=== PATIENT | male | born 1945 | race Caucasian/White ===

== ENCOUNTER 2016-05-17 10:24 | Emergency (ER) | payer OTHER, MEDICAID ==
[2016-05-17 10:29] VITALS: RESP 16; O2SAT 97
--- NOTE | 2016-05-17 10:32 | EDPHY ---
H & P Stated Complaint: abd pain Time Seen by Provider: 05/17/16 10:32 - Personal History Current Tetanus/Diphtheria Vaccine: Unsure Current Tetanus Diphtheria and Acellular Pertussis (TDAP): Unsure - Medical/Surgical History Hx Asthma: No Hx Chronic Respiratory Disease: No Hx Diabetes: No Hx Cardiac Disease: No Hx Renal Disease: No Hx Cirrhosis: No Hx Alcoholism: No Hx HIV/AIDS: No Hx Splenectomy or Spleen Trauma: No Other PMH: diverticulitis gout - Social History Smoking Status: Former smoker Constitutional: Initial Vital Signs Temperature (C) 36.3 C 05/17/16 10:26 Heart Rate 73 05/17/16 10:26 Respiratory Rate 16 05/17/16 10:26 Blood Pressure 157/92 H 05/17/16 10:26 O2 Sat (%) 97 05/17/16 10:26 O2 Delivery Mode Room Air Allergies/Adverse Reactions: No Known Allergies Allergy (Unverified 05/17/16 10:29) Medical Decision Making ED Course/Re-evaluation: CHIEF COMPLAINT: Abdominal pain HISTORY OF PRESENT ILLNESS: 70-year-old gentleman who was sent in by his primary care doctor's nurse because he has left lower quadrant abdominal pain. Has a remote history of Clostridium difficile about 5 years ago. He denies any diarrhea. He has an appoint with his primary care doctor later but his nurse sent the patient in to obtained tests the patient has no idea what tests. Patient denies fevers or chills. Patient denies diarrhea nausea or vomiting. Patient denies bloody stools. Patient is complaining of several days of left lower quadrant pain. REVIEW OF SYSTEMS: A 10 point review of systems was performed and is negative with the exception of the elements mentioned in the history of present illness. PHYSICAL EXAM: HR, BP, O2 Sat, RR. Temp noted General Appearance: Alert, well hydrated, appropriate, and non-toxic appearing. Head: Atraumatic without scalp tenderness or obvious injury Eyes: Pupils equal, round, reactive to light and accommodation, EOMI, no trauma , no injection. Ears: Clear bilaterally, no perforation, normal landmarks Nose: Atraumatic, no rhinorrhea, clear. Throat: There is no erythema or exudates, no lesions, normal tonsils, mucus membranes moist. Neck: Supple, 2+ carotid upstroke, nontender, no lymphadenopathy. Respiratory: No retractions, no distress, no wheezes, and no accessory muscle use. Lungs are clear to auscultation bilaterally. Cardiovascular: Regular rate and rhythm, no murmurs, rubs, or gallops. Bilateral carotid, radial, dorsalis pedis, and posterior tibial pulses intact. Good capillary refill all extremities. Gastrointestinal: Abdomen is soft, mild tenderness left lower quadrant, non- distended, no masses, no rebound, no guarding, no peritoneal signs. Musculoskeletal: Normal active ROM of all extremities, atraumatic. Neurological: Alert, appropriate, and interactive. The patient has normal DTRs and non-focal cranial nerves, motor, sensory, and cerebellar exam. Skin: No rashes, good turgor, no nodules on palpation. Past medical history: Lyme disease and Clostridium difficile Past surgical history: Noncontributory Family history: Noncontributory Social history: Single, retired, does not abuse tobacco drugs or alcohol DIAGNOSTICS/PROCEDURES/CRITICAL CARE TIME: Study: CT of the abdomen and pelvis with IV contrast Indication: left lower quadrant abdominal pain Results: CT scan of the abdomen and pelvis was obtained. The results of the study are constipation but no other acute findings. The study was read by the radiologist, Dr. Don Azevedo . I viewed the images myself on the PACS system. DIFFERENTIAL DIAGNOSIS: The differential diagnosis for the patient's abdominal pain included but was not limited to appendicitis, cholecystitis, hernias, testicular torsion, gastritis, and urinary tract infection. MEDICAL DECISION MAKING: This patient has a soft abdomen with some tenderness in the left lower quadrant. There is no evidence of significant infection or sepsis. There are no other problems including no nausea no vomiting no diarrhea. I will check laboratory studies and do CT scan to make sure this patient does not have any evidence of a surgical infectious process in his sigmoid or descending colon. I will discharge this patient with constipation instructions - Data Points Laboratory Results: Laboratory Results 05/17/16 10:38 05/17/16 10:38 05/17/16 10:38 WBC 6.30 10^3/uL (3.80-9.50) RBC 5.23 10^6/uL (4.40-6.38) Hgb 16.5 g/dL (13.7-17.5) Hct 46.7 % (40.0-51.0) MCV 89.3 fL (81.5-99.8) MCH 31.5 pg (27.9-34.1) MCHC 35.3 g/dL (32.4-36.7) RDW 12.1 % (11.5-15.2) Plt Count 203 10^3/uL (150-400) MPV 11.3 fL (8.7-11.7) Neut % (Auto) 71.7 % (39.3-74.2) Lymph % (Auto) 17.1 % (15.0-45.0) [place] % (Auto) 9.4 % (4.5-13.0) Eos % (Auto) 1.1 % (0.6-7.6) Baso % (Auto) 0.5 % (0.3-1.7) Nucleat RBC Rel Count 0.0 % (0.0-0.2) Absolute Neuts (auto) 4.52 10^3/uL (1.70-6.50) Absolute Lymphs (auto) 1.08 10^3/uL (1.00-3.00) Absolute Monos (auto) 0.59 10^3/uL (0.30-0.80) Absolute Eos (auto) 0.07 10^3/uL (0.03-0.40) Absolute Basos (auto) 0.03 10^3/uL (0.02-0.10) Absolute Nucleated RBC 0.00 10^3/uL (0-0.01) Immature Gran % 0.2 % (0.0-1.1) Immature Gran # 0.01 10^3/uL (0.00-0.10) Sodium 140 mEq/L (134-144) Potassium 4.0 mEq/L (3.5-5.2) Chloride 109 mEq/L (97-110) Carbon Dioxide 23 mEq/l (22-31) Anion Gap 8 mEq/L (8-16) BUN 7 mg/dL (7-23) Creatinine 0.6 L mg/dL (0.7-1.3) Estimated GFR > 60 Glucose 87 mg/dL (70-100) Calcium 9.0 mg/dL (8.5-10.4) Total Bilirubin 1.0 mg/dL (0.1-1.4) Conjugated Bilirubin 0.4 mg/dL (0.0-0.5) Unconjugated Bilirubin 0.6 mg/dL (0.0-1.1) AST 33 IU/L (17-59) ALT 34 IU/L (21-72) Alkaline Phosphatase 94 IU/L (38-126) Total Protein 6.7 g/dL (6.3-8.2) Albumin 3.8 g/dL (3.5-5.0) Lipase 213.0 IU/L (23-300) Departure - Departure Disposition: Home, Routine, Self-Care Clinical Impression: Abdominal pain Qualifiers: Abdominal location: left lower quadrant Qualifier Code: (R10.32) Left lower quadrant pain Constipation Qualifiers: Constipation type: chronic idiopathic constipation Qualifier Code: (K59.04) Chronic idiopathic constipation Condition: Good Instructions: High Fiber Diet (ED), Constipation (ED) Referrals: Timo Billingsley MD [Primary Care Provider] - As per Instructions
[2016-05-17 10:50] LABS: % IMMATURE GRANULYOCYTES 0.2 % (0.0-1.1); ABSOLUTE IMMATURE GRANULOCYTES 0.01 10^3/uL (0.00-0.10); ADD DIFF? NO; ADD MORPH? NO; ADD SCAN? NO; ATYPICAL LYMPHOCYTE FLAG 0 (0-99); FRAGMENT RBC FLAG 0 (0-99); HEMATOCRIT 46.7 % (40.0-51.0); HEMOGLOBIN 16.5 g/dL (13.7-17.5); LEFT SHIFT FLG 0 (0-99); LIPEMIA HEMOLYSIS FLAG 90 (0-99); MEAN CELL HEMOGLOBIN 31.5 pg (27.9-34.1); MEAN CELL HEMOGLOBIN CONCENTR. 35.3 g/dL (32.4-36.7); MEAN CELL VOLUME 89.3 fL (81.5-99.8); MEAN PLATELET VOLUME 11.3 fL (8.7-11.7); PLATELET CLUMPS FLAG 0 (0-99); PLATELET COUNT 203 10^3/uL (150-400); RED BLOOD CELL COUNT 5.23 10^6/uL (4.40-6.38); RED CELL DISTRIBUTION WIDTH 12.1 % (11.5-15.2)
[2016-05-17 11:08] LABS: ALANINE AMINOTRANSFERASE 34 IU/L (21-72); ALBUMIN 3.8 g/dL (3.5-5.0); ALKALINE PHOSPHATASE 94 IU/L (38-126); ANION GAP 8 mEq/L (8-16); ASPARTATE AMINOTRANSFERASE 33 IU/L (17-59); BILIRUBIN-CONJUGATED 0.4 mg/dL (0.0-0.5); BILIRUBIN-UNCONJUGATED 0.6 mg/dL (0.0-1.1); CARBON DIOXIDE 23 mEq/l (22-31); CHLORIDE 109 mEq/L (97-110); CREATININE 0.6 mg/dL (0.7-1.3); GLOMERULAR FILTRATION RATE > 60; GLUCOSE 87 mg/dL (70-100); SODIUM 140 mEq/L (134-144); TOTAL PROTEIN 6.7 g/dL (6.3-8.2)
[2016-05-17] MEDS ORDERED: IOPAMIDOL (ISOVUE-300) 100 ML BTL IV ONE (11:16)
[2016-05-17 11:59] VITALS: BP 167/95; PULSE 54; TEMP 97.5
--- NOTE | 2016-05-17 12:25 | CT ---
CT Scan of the Abdomen and Pelvis (With Contrast) at 1133 hours History: Left lower quadrant abdominal pain. Technique: Axial computed tomographic images of the abdomen and pelvis were obtained with the unevent ful intravenous administration of 90 mL Isovue-300 contrast. No oral or rectal contrast which limits the study. Dose reduction techniques were utilized. CT Abdomen Findings: Lung bases: Normal. Liver: Two benign hepatic cysts in the right lobe near the caudate and gallbladder measuring 3 x 2.5 cm and 1.5 x 1.2 cm, image 76 of series 4. No solid hepatic lesions or hepatomegaly. Biliary system: No obstruction. Spleen: Normal. Pancreas: Normal. Adrenals: Normal. Kidneys: No obstruction or solid masses.. Abdominal Aorta: Moderate atherosclerotic calcification of the aorta and iliac arteries without aneur ysm. No bowel obstruction, ascites, or significant retroperitoneal lymphadenopathy. CT Pelvis Findings: Moderate amount of stool throughout the entire colon consistent with constipation . Sigmoid diverticulosis without diverticulitis. No bowel obstruction. Appendix appears normal withou t inflammatory changes. No pelvic fluid collections. Prostate calcifications noted. No destructive os seous lesions. Impression: 1. Constipation. 2. No CT evidence of appendicitis, abscess or bowel obstruction. 3. Atherosclerotic aorta without aneurysm. 4. Benign hepatic cysts without hepatosplenomegaly or ascites. 5. Sigmoid diverticulosis without diverticulitis or obstruction. Findings and recommendations discussed with Emergency Department physician, Dr. Polo Castillo, at 1145 hours today. Final report concurs with initial preliminary interpretation.
== END 2016-05-17 11:58 | disposition home or self-care (01) ==
DX: K59.04 Chronic idiopathic constipation (principal); Z87.891 Personal history of nicotine dependence
CPT/HCPCS: 74177; 99285; Q9967

== ENCOUNTER 2016-12-25 01:19 | Emergency (ER) | payer OTHER, MEDICAID ==
[2016-12-25 01:59] LABS: % IMMATURE GRANULYOCYTES 0.2 % (0.0-1.1); ABSOLUTE IMMATURE GRANULOCYTES 0.01 10^3/uL (0.00-0.10); ADD DIFF? NO; ADD MORPH? NO; ADD SCAN? NO; ATYPICAL LYMPHOCYTE FLAG 10 (0-99); FRAGMENT RBC FLAG 0 (0-99); HEMATOCRIT 42.1 % (40.0-51.0); LEFT SHIFT FLG 0 (0-99); LIPEMIA HEMOLYSIS FLAG 90 (0-99); MEAN CELL HEMOGLOBIN 31.6 pg (27.9-34.1); MEAN CELL HEMOGLOBIN CONCENTR. 35.6 g/dL (32.4-36.7); MEAN CELL VOLUME 88.6 fL (81.5-99.8); MEAN PLATELET VOLUME 11.5 fL (8.7-11.7); PLATELET CLUMPS FLAG 0 (0-99); PLATELET COUNT 140 10^3/uL (150-400); RED BLOOD CELL COUNT 4.75 10^6/uL (4.40-6.38); RED CELL DISTRIBUTION WIDTH 12.3 % (11.5-15.2)
--- NOTE | 2016-12-25 02:06 | EDPHY ---
H & P Stated Complaint: rash/wound on penis- intermittent since 2011 and URI symptoms Time Seen by Provider: 12/25/16 01:32 HPI/ROS: HPI The patient presents with penile rash that has been present intermittently for years though getting worse over the last few weeks. About 1 and half weeks ago he saw his primary care doctor and was prescribed ketoconazole. He did not have improvement in his symptoms so 2 days ago followed up with his doctor and was started on a course of Augmentin as well as topical antibiotic ointment. He thinks it is still not improving. It is painful, not itchy, on the glans of his penis. He has been checking his temperature at home and has been getting readings of about 99 F, he says his temperature normally runs low so he is concerned. He does not have any nausea, vomiting. He also has been coughing with rhinorrhea for the last several days. REVIEW OF SYSTEMS Constitutional: Subjective fever Eyes: No discharge. ENT: No sore throat. Cardiovascular: No chest pain, no palpitations. Respiratory: No cough, no shortness of breath. Gastrointestinal: No abdominal pain, no vomiting. Genitourinary: No hematuria. Musculoskeletal: No back pain. Skin: No rashes. Neurological: No headache. 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 Soc Hx: Housed PHYSICAL General Appearance: Alert, no distress Eyes: Pupils equal and round no pallor or injection ENT, Mouth: Mucous membranes moist Respiratory: There are no retractions, lungs are clear to auscultation Cardiovascular: Regular rate and rhythm Gastrointestinal: Abdomen is soft and non-tender, no masses, bowel sounds normal : Uncircumcised with erythematous, edematous rash on the anterior surface of the glans Neurological: A&O, moves all extremities Skin: Warm and dry, no rashes Musculoskeletal: Neck is supple non tender Extremities: symmetrical, full range of motion Psychiatric: Patient is oriented X 3, there is no agitation Source: Patient Exam Limitations: No limitations - Personal History Current Tetanus/Diphtheria Vaccine: Unsure Current Tetanus Diphtheria and Acellular Pertussis (TDAP): Unsure - Medical/Surgical History Hx Asthma: No Hx Chronic Respiratory Disease: No Hx Diabetes: No Hx Cardiac Disease: Yes Hx Renal Disease: No Hx Cirrhosis: No Hx Alcoholism: No Hx HIV/AIDS: No Hx Splenectomy or Spleen Trauma: No Other PMH: diverticulitis, gout, lyme disease, bartonella, 3 or 4 cardiac stents - Social History Smoking Status: Former smoker Constitutional: Initial Vital Signs Temperature (C) 37.4 C 12/25/16 01:20 Heart Rate 75 12/25/16 01:20 Respiratory Rate 18 12/25/16 01:20 Blood Pressure 165/100 H 12/25/16 01:20 O2 Sat (%) 96 12/25/16 01:20 O2 Delivery Mode Room Air Allergies/Adverse Reactions: No Known Allergies Allergy (Unverified 05/17/16 10:29) Home Medications: Medication Instructions Recorded Colchicine 12/25/16 Herbals/Supplements -Info Only 12/25/16 metroNIDAZOLE 0.75 % [Metrogel 1 david TOP BID #45 gm 12/25/16 0.75% Topical Gel] Medical Decision Making - Diagnostics Imaging Results: Chest x-ray two view shows no infiltrate, no cardiomegaly, interpreted by me, radiology interpretation is pending. Imaging: I viewed and interpreted images myself Differential Diagnosis: This is a relatively healthy 71-year-old man with past medical history of C diff colitis from prolonged antibiotic use for diagnosis of chronic Lyme disease who presents with penile rash, not improving with ketoconazole or Augmentin. He has had this rash for several years though thinks it is getting worse. He also describes low-grade fevers over the last 1-2 days. Differential diagnosis includes balanitis, urinary tract infection, less likely penile abscess. Pneumonia is also a consideration. In the emergency department, labs were checked and were unremarkable for any leukocytosis, renal failure. UA was normal showing no sign of infection. Chest x-ray showed no pneumonia. I feel he likely has balanitis. I will add metronidazole topically to his regimen of Augmentin. This will hopefully provide additional coverage for the infection. He was educated on signs and symptoms of sepsis. He will be discharged with follow up with his primary care doctor. - Data Points Laboratory Results: Laboratory Results 12/25/16 01:50 12/25/16 01:50 12/25/16 12/25/16 12/25/16 02:30 01:50 01:50 WBC 5.97 10^3/uL 10^3/uL (3.80-9.50) RBC 4.75 10^6/uL 10^6/uL (4.40-6.38) Hgb 15.0 g/dL g/dL (13.7-17.5) Hct 42.1 % % (40.0-51.0) MCV 88.6 fL fL (81.5-99.8) MCH 31.6 pg pg (27.9-34.1) MCHC 35.6 g/dL g/dL (32.4-36.7) RDW 12.3 % % (11.5-15.2) Plt Count 140 10^3/uL L 10^3/uL (150-400) MPV 11.5 fL fL (8.7-11.7) Neut % (Auto) 76.0 % H % (39.3-74.2) Lymph % (Auto) 9.4 % L % (15.0-45.0) [place] % (Auto) 12.6 % % (4.5-13.0) Eos % (Auto) 1.3 % % (0.6-7.6) Baso % (Auto) 0.5 % % (0.3-1.7) Nucleat RBC Rel Count 0.0 % % (0.0-0.2) Absolute Neuts (auto) 4.54 10^3/uL 10^3/uL (1.70-6.50) Absolute Lymphs (auto) 0.56 10^3/uL L 10^3/uL (1.00-3.00) Absolute Monos (auto) 0.75 10^3/uL 10^3/uL (0.30-0.80) Absolute Eos (auto) 0.08 10^3/uL 10^3/uL (0.03-0.40) Absolute Basos (auto) 0.03 10^3/uL 10^3/uL (0.02-0.10) Absolute Nucleated RBC 0.00 10^3/uL 10^3/uL (0-0.01) Immature Gran % 0.2 % % (0.0-1.1) Immature Gran # 0.01 10^3/uL 10^3/uL (0.00-0.10) Sodium 131 mEq/L L mEq/L (134-144) Potassium 3.9 mEq/L mEq/L (3.5-5.2) Chloride 101 mEq/L mEq/L (97-110) Carbon Dioxide 20 mEq/l L mEq/l (22-31) Anion Gap 10 mEq/L mEq/L (8-16) BUN 8 mg/dL mg/dL (7-23) Creatinine 0.7 mg/dL mg/dL (0.7-1.3) Estimated GFR > 60 Glucose 100 mg/dL mg/dL (70-100) Calcium 8.9 mg/dL mg/dL (8.5-10.4) Total Bilirubin 0.8 mg/dL mg/dL (0.1-1.4) AST 26 IU/L IU/L (17-59) ALT 35 IU/L IU/L (21-72) Alkaline Phosphatase 75 IU/L IU/L (38-126) Total Protein 6.2 g/dL L g/dL (6.3-8.2) Albumin 3.9 g/dL g/dL (3.5-5.0) Urine Color YELLOW Urine Appearance CLEAR Urine pH 8.0 H (5.0-7.5) Ur Specific [place] 1.003 (1.002-1.030) Urine Protein NEGATIVE (NEGATIVE) Urine Ketones NEGATIVE (NEGATIVE) Urine Blood NEGATIVE (NEGATIVE) Urine Nitrate NEGATIVE (NEGATIVE) Urine Bilirubin NEGATIVE (NEGATIVE) Urine Urobilinogen NEGATIVE EU EU (0.2-1.0) Ur Leukocyte Esterase NEGATIVE (NEGATIVE) Urine Glucose NEGATIVE (NEGATIVE) Departure - Departure Disposition: Home, Routine, Self-Care Clinical Impression: Balanitis, Cough Condition: Good Instructions: Balanitis (ED) Additional Instructions: Please continue with the antibiotics were prescribed. If you're not improving in the next few days, you can try the prescription I have given you. Referrals: Timo Billingsley MD [Primary Care Provider] - As per Instructions Prescriptions: metroNIDAZOLE 0.75 % [Metrogel 0.75% Topical Gel] 1 david TOP BID #45 gm
[2016-12-25 02:13] LABS: ALANINE AMINOTRANSFERASE 35 IU/L (21-72); ALBUMIN 3.9 g/dL (3.5-5.0); ALKALINE PHOSPHATASE 75 IU/L (38-126); ANION GAP 10 mEq/L (8-16); ASPARTATE AMINOTRANSFERASE 26 IU/L (17-59); BILIRUBIN,TOTAL 0.8 mg/dL (0.1-1.4); CALCIUM 8.9 mg/dL (8.5-10.4); CARBON DIOXIDE 20 mEq/l (22-31); CHLORIDE 101 mEq/L (97-110); CREATININE 0.7 mg/dL (0.7-1.3); GLOMERULAR FILTRATION RATE > 60; GLUCOSE 100 mg/dL (70-100); POTASSIUM 3.9 mEq/L (3.5-5.2); SODIUM 131 mEq/L (134-144); TOTAL PROTEIN 6.2 g/dL (6.3-8.2)
[2016-12-25 02:45] LABS: COLOR YELLOW; LEUKOCYTE ESTERASE,URINE NEGATIVE (NEGATIVE); NITRITE,URINE NEGATIVE (NEGATIVE)
[2016-12-25 03:03] VITALS: BP 122/87; PULSE 89; RESP 16; TEMP 99.2; O2SAT 97
== END 2016-12-25 03:02 | disposition home or self-care (01) ==
DX: N48.1 Balanitis (principal); R05 Cough; Z87.891 Personal history of nicotine dependence; Z95.5 Presence of coronary angioplasty implant and graft

== ENCOUNTER 2017-02-22 16:50 | Emergency (ER) | payer OTHER, MEDICAID ==
[2017-02-22 16:57] VITALS: TEMP 97.5
[2017-02-22] MEDS ORDERED: NS 1,000 ML IV ONE (17:37)
[2017-02-22] MEDS ORDERED: DIAZEPAM 10 MG/2 ML SYR IVP ONE (17:38)
--- NOTE | 2017-02-22 17:43 | EDPHY ---
H & P Time Seen by Provider: 02/22/17 17:24 HPI/ROS: HPI Reaction marijuana. 71-year-old male by private vehicle with his ex-. This patient reports that he was on the phone with his ex-. He reports that he made some marijuana tea that he was just planning on having 2 or 3 sips of. He reports he was on the phone and got distracted in conversation. He drank the whole cup. This occurred approximately 3 hours ago. Since this time he has felt numb all over his body, very weak, faint and anxious. ROS: Constitutional: No fever, no chills. As above. Eyes: No discharge. No changes in vision. ENT: No sore throat. No nasal congestion or rhinorrhea. Respiratory: No cough. No shortness of breath. Cardiac: No chest pain, no palpitations. Gastrointestinal: No abdominal pain, no vomiting, no diarrhea. Genitourinary: No hematuria. No dysuria or increased frequency with urination. Musculoskeletal: No back pain. No neck pain. No myalgias or arthralgias. Skin: No rashes. Neurological: No headache. No focal weakness or altered sensation. Past medical history: Diverticulitis, gout, Lyme disease, history of coronary artery disease with cardiac stents placed. Social history: Nonsmoker. He reports he does not use drugs on a regular basis. He reports he has not used marijuana since the 60s. Denies alcohol. Physical Exam: General Appearance: Alert, anxious. This patient is responding to questions appropriately and in full sentences. This patient appears well-hydrated and well-nourished. Eyes: Pupils equal and round no pallor or injection. No lid edema, erythema or injection. ENT, Mouth: Mucous membranes are dry. The pharyngeal tissues are unremarkable. No edema or swelling. No asymmetry suggestive of abscess. No erythema or exudates. Respiratory: There are no retractions, lungs are clear to auscultation with good air movement bilaterally. Cardiovascular: Regular rate and rhythm. Borderline tachycardia. No murmur. Gastrointestinal: Abdomen is soft and nontender, no masses, bowel sounds normal. No focal tenderness at McBurney's point. No Coreas sign. Neurological: Motor sensory function is grossly intact. Cranial nerves are normal. Skin: Warm and dry, no rashes. Musculoskeletal: Neck is supple and nontender. Extremities are symmetrical. All joints range without pain or impingement. Psychiatric: No agitation. No depression. Database: EKG: EKG time is 5:54 p.m.; EKG shows a narrow complex normal sinus rhythm with a ventricular rate of 78. The NE, QRS, QT intervals are within normal limits. There are no ST-T wave changes indicative of ischemic or injury pattern. No evidence of right heart strain. Interpreted by me. Imaging: Procedures: Emergency department course: IV placed. His vital signs have been reviewed. He is afebrile. Blood pressure is mildly elevated. Mild tachycardia noted. He was started on IV normal saline with 1 L to be given over the next hour. He will be given 5 mg of IV Valium initially for his anxiety. This will be repeated as needed. EKG obtained. 9:20 p.m., patient is up and ambulatory with a normal gait. He states that he is feeling much better. I discussed the results of his blood work and his EKG. He feels comfortable going home and I feel he is safe for discharge. Follow- up and return to emergency department precautions were reviewed with him. All of his questions were answered. He was discharged in good condition with his ex -. Differential Diagnosis: The differential diagnosis on this patient includes but is not limited to adverse reaction to marijuana. Cardiac related syncope, acute coronary syndrome unlikely. This represents a partial list of diagnoses considered. These considerations are based on history, physical exam, past history, reassessment and diagnostic testing. Smoking Status: Former smoker Constitutional: Initial Vital Signs Temperature (C) 36.4 C 02/22/17 16:54 Heart Rate 104 H 02/22/17 16:54 Respiratory Rate 20 02/22/17 16:54 Blood Pressure 148/92 H 02/22/17 16:54 O2 Sat (%) 99 02/22/17 16:54 O2 Delivery Mode Room Air Allergies/Adverse Reactions: No Allergies Allergy (Mild, Verified 02/22/17 16:53) Milk Containing Products Adverse Reaction (Intermediate, Verified 02/22/17 16:53 ) Other-Enter Comments Home Medications: Medication Instructions Recorded Colchicine 12/25/16 Medical Decision Making - Data Points Laboratory Results: Laboratory Results 02/22/17 17:45 02/22/17 17:45 Medications Given: Discontinued Medications Diazepam (Valium Injection) 5 mg IVP EDNOW ONE Stop: 02/22/17 17:39 Last Admin: 02/22/17 21:51 Dose: Not Given Sodium Chloride (Ns) 1,000 mls @ 0 mls/hr IV EDNOW ONE; Wide Open PRN Reason: Protocol Stop: 02/22/17 17:38 Last Admin: 02/22/17 21:51 Dose: Not Given Departure - Departure Disposition: Home, Routine, Self-Care Clinical Impression: Adverse reaction to cannabis Condition: Good Instructions: Medicinal Use of Cannabis (ED) Additional Instructions: Read and follow provided instructions. Follow-up with your primary care physician tomorrow for re-evaluation. Do not use marijuana or other drugs. Return to the emergency department for worsening symptoms or other serious concerns. Referrals: Timo Billingsley MD [Primary Care Provider] - As per Instructions
--- NOTE | 2017-02-22 17:56 | CPEKG ---
Heart Rate: 78 RR Interval: 769 P-R Interval: 180 QRSD Interval: 108 QT Interval: 416 QTC Interval: 474 P [place]: 75 QRS [place]: 49 T Wave [place]: 46 EKG Severity - NORMAL ECG - EKG Impression: SINUS RHYTHM Electronically Signed By: Karol Thorpe 22-Feb-2017 23:06:02
[2017-02-22 18:01] LABS: % IMMATURE GRANULYOCYTES 0.3 % (0.0-1.1); ABSOLUTE IMMATURE GRANULOCYTES 0.03 10^3/uL (0.00-0.10); ADD DIFF? NO; ADD MORPH? NO; ADD SCAN? NO; ATYPICAL LYMPHOCYTE FLAG 0 (0-99); FRAGMENT RBC FLAG 0 (0-99); HEMATOCRIT 40.1 % (40.0-51.0); HEMOGLOBIN 14.6 g/dL (13.7-17.5); LEFT SHIFT FLG 0 (0-99); LIPEMIA HEMOLYSIS FLAG 90 (0-99); MEAN CELL HEMOGLOBIN 31.4 pg (27.9-34.1); MEAN CELL HEMOGLOBIN CONCENTR. 36.4 g/dL (32.4-36.7); MEAN CELL VOLUME 86.2 fL (81.5-99.8); MEAN PLATELET VOLUME 11.6 fL (8.7-11.7); PLATELET CLUMPS FLAG 0 (0-99); PLATELET COUNT 184 10^3/uL (150-400); RED BLOOD CELL COUNT 4.65 10^6/uL (4.40-6.38)
[2017-02-22 18:10] LABS: ANION GAP 16 mEq/L (8-16); CALCIUM 9.2 mg/dL (8.5-10.4); CARBON DIOXIDE 16 mEq/l (22-31); CHLORIDE 100 mEq/L (97-110); CREATININE 0.6 mg/dL (0.7-1.3); GLOMERULAR FILTRATION RATE > 60; GLUCOSE 149 mg/dL (70-100); POTASSIUM 3.3 mEq/L (3.5-5.2); SODIUM 132 mEq/L (134-144)
[2017-02-22 18:21] LABS: TROPONIN I < 0.012 ng/mL (0.000-0.034)
[2017-02-22 20:34] VITALS: BP 128/83; PULSE 89; RESP 16; O2SAT 98
== END 2017-02-22 21:49 | disposition home or self-care (01) ==
DX: R20.0 Anesthesia of skin (principal); T40.7X5A Adverse effect of cannabis (derivatives), initial encounter; I25.10 Atherosclerotic heart disease of native coronary artery without angina pectoris; Z87.891 Personal history of nicotine dependence

== ENCOUNTER → 2017-12-01 | Outpatient (CLI) | payer OTHER, MEDICAID | LOC: SUPIMAGING 11:19 → EDSTATUS 16:24 | PROVIDERS: ATTEND Family Medicine | DX: M25.431 Effusion, right wrist (principal); M25.531 Pain in right wrist | CPT/HCPCS: 73110-PN ==

== ENCOUNTER → 2018-06-18 | Outpatient (CLI) | payer OTHER, MEDICAID | LOC: SUPIMAGING 11:59 | PROVIDERS: ATTEND Family Medicine | DX: K59.00 Constipation, unspecified (principal) | CPT/HCPCS: 74019-PN ==